=== PATIENT | male | born 1975 | race Caucasian/White ===

== ENCOUNTER → 2018-02-14 14:20 | Outpatient (CLI) | payer OTHER, SELFPAY | PROVIDERS: Visit Provider Physician Assistant | DX: J02.0 Streptococcal pharyngitis (principal) | CPT/HCPCS: 87070 ==

== ENCOUNTER → 2018-05-14 16:04 | Outpatient (CLI) | payer OTHER, SELFPAY | PROVIDERS: Visit Provider Physician Assistant | DX: R68.89 Other general symptoms and signs (principal) | CPT/HCPCS: 87400 ==

== ENCOUNTER 2020-12-03 14:44 | Emergency (ER) | payer OTHER, SELFPAY ==
[2020-12-03 14:51] VITALS: BP 132/71; PULSE 86; RESP 20; TEMP 36.2; O2SAT 98; BMI 25.8
--- NOTE | 2020-12-03 16:00 | ED.DIZZY ---
HPI - Dizziness <GLADIS Booker - Last Filed: 12/03/20 21:04> General Chief Complaint: Dizziness Stated Complaint: dizziness Time Seen by Provider: 12/03/20 15:20 Source: patient Mode of arrival: Ambulatory Limitations: no limitations History of Present Illness HPI Narrative: 45-year-old male presents the ED with complaint of vertigo for 1 and half months, that is intermittent, and happens most often when turning his head quickly. He reports that this started in the middle the night when he turned his head. He endorses that he does have seasonal allergies and has not been taking his Flonase or Zyrtec recently. He reports that he has a little bit of ear crackles, like Rice Krispies, although he has not had any changes to his hearing. He denies any visual changes although he reports that he has difficulty reading things up close and it is a little easier to read things that are further way. He does not know when his last eye exam was. Reports that he has had no chest pain, no shortness of breath, no lightheadedness, and no vertigo unless he is turning his head. He denies any fever chills, no nausea vomiting, he reports that his stomach just does not feel very good when he has this vertigo. He reports that the room is spinning around him and that he is not spinning. He does not feel the symptoms current, although he felt it earlier and he states his made him. He reports that if he does stop moving and wait a little while that his symptoms do resolve. Related Data Previous Rx's Medication Instructions Recorded meclizine 25 mg tablet 25 mg PO BID-QID #20 tab MDD 100mg 12/03/20 Allergies Allergy/AdvReac Type Severity Reaction Status Date / Time No Known Drug Allergies Allergy Verified 12/03/20 14:55 Review of Systems <GLADIS Booker - Last Filed: 12/03/20 21:04> Review of Systems Narrative: General: denies fever, chills, endorses episodes with vertigo lasting up to a minute or so but then resolve Head/Neck: denies headache, neck pain Eyes: denies visual changes, eye pain Cardio: denies chest pain, palpitations Respiratory: denies shortness of breath, cough GI: denies abdominal pain, nausea, vomiting, or diarrhea : denies dysuria, hematuria MSK: denies joint pain, muscle weakness Skin: denies rash, itching Neuro: denies numbness, tingling Patient History <GLADIS Booker - Last Filed: 12/03/20 21:04> Social History Smoking Status: Current every day smoker Smoking Status: Current every day smoker alcohol intake frequency: 0-2 drinks per day Substance Use Type: does not use Exam <GLADIS Booker - Last Filed: 12/03/20 21:04> Narrative Exam Narrative: Independently reviewed vitals signs and nursing notes. General: Awake, alert, nontoxic, no cardiorespiratory distress Head/Neck: Atraumatic, neck full range of motion Eyes: EOMI, conjunctiva normal Ears: No difference in hearing from his right to his left. No swelling around his ear. Nose: nares patent, no rhinorrhea Mouth/Throat: moist mucus membranes, posterior pharynx normal, no oral lesions, no lymphadenopathy, although 1 very small cervical lymph node palpable near left ear. Cardio: Regular rate and rhythm, no peripheral edema Respiratory: respirations unlabored without wheezing, stridor, or rales. No retractions. GI: Abdomen soft, nontender MSK: Moves all extremities, neurovascularly intact Skin: Normal capillary refill, no rash Neuro: Normal speech and cognition, normal gait Initial Vital Signs Initial Vital Signs: Vital Signs Temperature 97.1 F L 12/03/20 14:51 Pulse Rate 86 12/03/20 14:51 Respiratory Rate 20 12/03/20 14:51 Blood Pressure 132/71 12/03/20 14:51 Pulse Oximetry 98 12/03/20 14:51 <Yuly Martinez DO - Last Filed: 12/08/20 07:18> Initial Vital Signs Initial Vital Signs: Vital Signs Temperature 97.1 F L 12/03/20 14:51 Pulse Rate 86 12/03/20 14:51 Respiratory Rate 20 12/03/20 14:51 Blood Pressure 132/71 12/03/20 14:51 Pulse Oximetry 98 12/03/20 14:51 Course <GLADIS Booker Last Filed: 12/03/20 21:04> Orders Ordered: Discontinued Medications Meclizine HCl (Meclizine Hcl 12.5 Mg Tablet) 25 mg PO NOW ONE Stop: 12/03/20 15:22 Last Admin: 12/03/20 16:02 Dose: 25 mg Documented by: MIGUEL Reevaluation(s) Reevaluation #1: After meclizine, pt reports he feels fine, does not have vertigo at this time. Vital Signs Vital signs: Vital Signs - 8 hr 12/03/20 14:51 12/03/20 16:08 Temperature 97.1 F L Pulse Rate 86 83 Respiratory Rate 20 14 Blood Pressure 132/71 126/72 Pulse Oximetry 98 97 <Yuly Martinez DO - Last Filed: 12/08/20 07:18> Orders Ordered: Discontinued Medications Meclizine HCl (Meclizine Hcl 12.5 Mg Tablet) 25 mg PO NOW ONE Stop: 12/03/20 15:22 Last Admin: 12/03/20 16:02 Dose: 25 mg Documented by: MIGUEL Vital Signs Vital signs: Vital Signs - 8 hr 12/03/20 14:51 12/03/20 16:08 Temperature 97.1 F L Pulse Rate 86 83 Respiratory Rate 20 14 Blood Pressure 132/71 126/72 Pulse Oximetry 98 97 MDM - Dizziness <GLADIS Booker - Last Filed: 12/03/20 21:04> [facility] Narrative Medical decision making narrative: 45-year-old male presents the ED for 1 and half months of vertigo symptoms after head movement. This is most likely BPPV based on his history description of symptoms. He describes that he gets congestion with seasonal allergies. I recommended that he take meclizine for symptoms, and to continue his Zyrtec, and use Flonase for a couple of weeks to see if this helps his symptoms. More importantly he was instructed to establish primary care with his PCP for follow-up about this. Initial ddx to include but not limited to Meniere's disease, other inner ear problem, or seasonal allergies. Patient is appropriate and amenable to discharge home. Vital signs are stable on repeat examination is unremarkable. Patient has been informed of results. Patient has been given strict return to ER precautions for any new or worsening symptoms. Patient understands to follow up closely with outpatient providers as instructed. Patient understands plan and agrees to discharge home. All questions and concerns answered at this time. <Yuly Martinez DO - Last Filed: 12/08/20 07:18> ECG Data Interpretation: Normal sinus rhythm rate 77 ND interval 116 QRS [address] changes no T-wave inversions no priors to compare Discharge Plan Departure Patient Disposition: Home Clinical Impression: Benign paroxysmal positional vertigo Qualifiers: Laterality: left Qualified Code(s): H81.12 - Benign paroxysmal vertigo, left ear Instructions: DI for Vertigo Activity Restrictions/Additional Instructions: You most likely have benign paroxysmal positional vertigo. Try Flonase twice a day for week, take your Zyrtec, and try meclizine when you have symptoms. Make an appointment with your PCP for follow-up if you are still having symptoms. Try to make gradual movements with your head, avoid any sudden movements of stomach your symptoms worse. *What to do: *Please continue to take your regular medications as directed. [x ] New medication prescriptions sent to your pharmacy: [[facility]] [ ] New medication written as a paper prescription [ ] No new medications given *Please follow up with your primary care provider in 2-3 days, call for an appointment. Let them know you were seen in the Emergency Department and that we ask that you be seen in follow up. We will electronically transmit a record of today's note if your PCP is in our system *If you do not have a primary care provider please contact the [facility] Resource line at [phone]. They will ask some questions about your medical history and help get you set up with a doctor in the community. *Return to Emergency Department if you should have any new, worsening or concerning symptoms, such as [fever greater than 101F, chills, worsening pain, persistent vomiting or other bothersome symptoms] Prescriptions: New meclizine 25 mg tablet 25 mg PO BID-QID MDD 100mg Qty: 20 RF: 0 Referrals: Neelima Moses ARNP [Primary Care Provider] -
[2020-12-03] MEDS: MECLIZINE HCL 12.5 MG TABLET 25 MG PO (16:02)
[2020-12-03 16:08] VITALS: BP 126/72; PULSE 83; RESP 14; O2SAT 97
== END 2020-12-03 16:10 | disposition home or self-care (01) ==
PROVIDERS: Emergency Provider Nurse Practitioner Critical Care Medicine; PCP Nurse Practitioner
DX: H81.12 Benign paroxysmal vertigo, left ear (principal)
CPT/HCPCS: 93005; 99283

== ENCOUNTER 2023-04-12 17:55 | Emergency (ER) | payer OTHER, SELFPAY ==
[2023-04-12 17:59] VITALS: PULSE 104; O2SAT 97
[2023-04-12 18:00] VITALS: BP 148/92; PULSE 95; O2SAT 98
[2023-04-12 18:03] VITALS: BP 148/92; PULSE 89; RESP 16; TEMP 37.1; O2SAT 98; BMI 25.8
--- NOTE | 2023-04-12 18:09 | ED.BACK ---
HPI - Back Pain/Injury <Geovanny Bingham PA-C - Last Filed: 04/12/23 18:36> General Chief Complaint: Extremity Problem,Nontraumatic Stated Complaint: Right side upper back pain Time Seen by Provider: 04/12/23 18:07 History of Present Illness HPI Narrative: This is a 39-year-old male presents emergency department complaining of right-sided thoracic back pain. This began 4 days ago when he was lifting a heavy box [place] [employer]. He states that the pain begins in mid back and radiates down his right upper extremity occasionally. He states that pain worsens with movement. He denies any numbness or tingling in his right upper extremity. States that pain begins around his right trapezius. He was tried massage therapy which mildly helps with the pain. Reports taking 6000 mg of Tylenol a day as well as 3200 mg of ibuprofen to help with the pain with moderate relief. He denies any chest pain, shortness of breath, fevers, or any other systemic symptoms. Related Data Previous Rx's Medication Instructions Recorded meclizine 25 mg tablet 25 mg PO BID-QID #20 tabs 12/03/20 cyclobenzaprine 10 mg tablet 10 mg PO TID #30 tabs 04/12/23 lidocaine 4 % topical patch 1 patch topical BID PRN pain #30 ea 04/12/23 methylprednisolone 4 mg tablets in See Rx Instructions PO .COMPLEX 04/12/23 a dose pack (Medrol (Jaswinder)) #21 ea Allergies Allergy/AdvReac Type Severity Reaction Status Date / Time No Known Drug Allergies Allergy Verified 04/12/23 18:10 Review of Systems <Geovanny Bingham PA-C - Last Filed: 04/12/23 18:36> Review of Systems Narrative: GENERAL: Denies chills, fatigue, malaise, fever, sweats. HEENT: Denies sinus pain, ear pain, sore throat, difficulty swallowing, dizziness. RESPIRATORY: Denies dyspnea, cough, wheezing, hemoptysis, sputum. CARDIOVASCULAR: Denies chest pain, palpitations, orthopnea, edema, GASTROINTESTINAL: Denies nausea, vomiting, abdominal pain, diarrhea, constipation, melena. : Denies dysuria, frequency, incontinence, hematuria, urinary retention. MUSCULOSKELETAL: denies weakness, joint pain, or bony pain SKIN: Denies rash, skin lesions, or other NEUROLOGIC: Denies weakness, headache, numbness, change in speech, confusion, seizures, incoordination. PSYCHIATRIC: No concerning psychosocial issues. 12 point review of systems is negative except for those stated above Patient History <SOWMYA Balderas Last Filed: 04/12/23 18:36> Social History Smoking Status: Current every day smoker Smoking Status: Current every day smoker alcohol intake frequency: 0-2 drinks per day Substance Use Type: does not use Exam <SOWMYA Balderas Last Filed: 04/12/23 18:36> Narrative Exam Narrative: GENERAL: Well-developed patient, in mild distress. HEAD: Atraumatic. Normocephalic. EYES: Pupils equal round and reactive. Extraocular motions intact. No scleral icterus. No injection or drainage. ENT: Nose without bleeding, purulent drainage. Throat without erythema, tonsillar hypertrophy or exudate. Airway patent. NECK: Trachea midline. Non tender EXTREMITIES: No edema or joint tenderness. NEURO: AOx3. SKIN: No rash or erythema of visible areas Back: Tenderness to palpation to the thoracic paraspinals on the right side at approximately T1. No significant tenderness to palpation to the right shoulder remainder of right upper extremity. No significant weakness noted to the right side. Maintains adequate range of motion of the shoulder. Neurovascularly intact. Initial Vital Signs Initial Vital Signs: Vital Signs Pulse Rate 104 H 04/12/23 17:59 Pulse Oximetry 97 04/12/23 17:59 <Reuben Gordon DO - Last Filed: 04/13/23 07:01> Initial Vital Signs Initial Vital Signs: Vital Signs Pulse Rate 104 H 04/12/23 17:59 Pulse Oximetry 97 04/12/23 17:59 Course <SOWMYA Balderas Last Filed: 04/12/23 18:36> Vital Signs Vital signs: Vital Signs - 8 hr 04/12/23 18:03 04/12/23 18:10 Temperature 98.7 F Pulse Rate 89 Pulse Rate [Right Radial] 88 Respiratory Rate 16 Blood Pressure 148/92 H Pulse Oximetry 98 Oxygen Delivery Method Room Air <Reuben Gordon DO - Last Filed: 04/13/23 07:01> Vital Signs Vital signs: Vital Signs - 8 hr 04/12/23 18:03 04/12/23 18:10 Temperature 98.7 F Pulse Rate 89 Pulse Rate [Right Radial] 88 Respiratory Rate 16 Blood Pressure 148/92 H Pulse Oximetry 98 Oxygen Delivery Method Room Air MDM - Back Pain/Injury <Geovanny Bingham PA-C - Last Filed: 04/12/23 18:36> MDM Narrative Medical decision making narrative: ED course: This is a 47-year-old male presents to the emergency department complaining of suspected muscular strain after working with a heavy objects. He does have some pain noted with palpation of the right thoracic paraspinal muscles and. Did recommend following up outpatient with his primary care provider for possible MRI if the pain continues. Patient has already been taking a very high dosing of ibuprofen and Tylenol and no Toradol given today. We will prescribe muscle relaxants as well as a Medrol Dosepak, lidocaine patches. Recommended rest, ice, massage. CC: Right shoulder pain Complicating co-morbidities: None Data collected from: Previous notes Medical records reviewed: Patient was last seen 3 years ago due to benign positional vertigo. No pertinent medical history. Differential considered, but not limited to: Right shoulder strain, spinal cord injury Exam documented above, pertinent findings include: Tenderness to palpation to the thoracic paraspinals. No significant weakness noted on exam. Lab Test results independently reviewed as above. Pertinent findings: None obtained Imaging studies independently reviewed: None obtained Scores Used: None MIPS Elements: None Consultations: None Treatments: None Re-evaluations: None Discussion: Discussed plan with the patient was comfortable with the plan Diagnosis: Muscular strain Disposition: see below, along with detailed discharge instructions that have been reviewed with patient as well as indications for ED re-evaluation and additional outpatient follow up Discharge Plan Departure Patient Disposition: Home Clinical Impression: Muscle strain Activity Restrictions/Additional Instructions: Thank you for coming to the [facility] Emergency Department today. As we discussed I suspect this is muscular in nature. There is a chance that your some inflammation which is compressing some of the nerves coming from your spine which is causing the pain radiating down her right upper extremity. I suspect with rest, muscle relaxants, anti-inflammatories, and time that should improve. I do recommend he follow up with the primary care provider for a possible outpatient MRI if your symptoms continue. Please take the ibuprofen and Tylenol as recommended on the bottle. Please return to the emergency department if you develop any chest pain, shortness of breath, significant new weakness, or any other concerning signs or symptoms. I hope you feel better soon. Please follow up with your primary care provider within a week if your symptoms continue. If you do not have a primary care provider please contact the [facility] Resource line at [phone]. They will ask some questions about your medical history and help you get set up with a provider in the community. Prescriptions: New cyclobenzaprine 10 mg tablet 10 mg PO TID Qty: 30 0RF lidocaine 4 % adhesive patch,medicated 1 patch topical BID PRN (Reason: pain) Qty: 30 0RF methylprednisolone [Medrol (Jaswinder)] 4 mg tablets,dose pack See Rx Instructions .ROUTE .COMPLEX Qty: 21 0RF Rx Instructions: orally per package directions No Action meclizine 25 mg tablet 25 mg PO BID-QID MDD 100mg Qty: 20 0RF Referrals: Neelima Moses ARNP [Primary Care Provider] - Stand Alone Forms: Patient Portal/API ED Sign-out <Reuben Godron, DO - Last Filed: 04/13/23 07:01> Cosign ED Attending Cosignature Attestation: Dr Gordon Co-Sign Statement: I was available for consultation during this patient's emergency department visit. This chart is signed by myself for administrative purposes only. I did not have direct contact with this patient during this visit. They were seen independently by the APC.
[2023-04-12 18:10] VITALS: PULSE 88
[2023-04-12 18:30] VITALS: BP 133/76; PULSE 86; O2SAT 96
== END 2023-04-12 18:57 | disposition home or self-care (01) ==
LOC: ED 18:38
PROVIDERS: Emergency Provider Physician Assistant Medical; PCP Nurse Practitioner
DX: S29.012A Strain of muscle and tendon of back wall of thorax, initial encounter (principal); X50.0XXA Overexertion from strenuous movement or load, initial encounter
CPT/HCPCS: 99281; 99283

== ENCOUNTER 2025-03-08 12:25 | Inpatient (IN) | payer OTHER, SELFPAY ==
[2025-03-08 13:24] VITALS: BP 138/79; PULSE 80; RESP 17; TEMP 36.7; O2SAT 99; BMI 24.7
[2025-03-08 14:18] LABS: Add Manual Diff / Slide Review NO; Hematocrit 41.0 % (41-53); Hemoglobin 13.9 g/dL (13.5-17.5); Lymphocytes Absolute Auto 2100 /uL (1100-4500); Mean Corpuscular HGB Conc 33.9 % (30-36); Mean Corpuscular Hemoglobin 31.8 PG (26-34); Mean Corpuscular Volume 94.1 fL (80-100); Platelet Count 227 X10^3/uL (150-400)
[2025-03-08 14:29] LABS: Alanine Aminotransferase 16 IU/L (<50); Albumin 4.5 g/dL (3.5-5.0); Albumin Globulin Ratio 1.5 (1.0-2.8); Alkaline Phosphatase 81 U/L (38-126); Blood Urea Nitrogen 14 mg/dL (9-20); Calcium 9.1 mg/dL (8.4-10.2); Carbon Dioxide 26 mmol/L (22-32); Chloride 108 mmol/L (98-107); Estimated Glomerular Filt Rate > 60 mL/min (>60); Globulin 3.1 g/dL (1.7-4.1); Glucose 102 mg/dL (70-99); HEMOLYSIS 24 (0-50); Potassium 5.0 mmol/L (3.4-5.1); Sodium 140 mmol/L (137-145); Total Protein 7.6 g/dL (6.3-8.2)
[2025-03-08 14:30] LABS: Lactate (Lactic Acid) 1.1 mmol/L (0.7-2.1)
[2025-03-08 14:47] LABS: Procalcitonin 0.067 ng/mL (<0.5)
--- NOTE | 2025-03-08 15:10 | ED.UPPEXIN ---
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 Patient was seen by would be urgent care yesterday whereby x-rays were done and cephalexin was discharged for which he has taken 1 dose. He noticed this morning swelling has gotten worse he is not able to bend his finger and he has noticed warmth tenderness and redness going up the wrist. Patient denies fever chills body aches numbness tingling down up the arm and neck. Other than what is stated 14 point review of system is negative. Related Data Previous Rx's ?Medication ?Instructions ?Recorded meclizine 25 mg tablet 25 mg PO BID-QID #20 tabs 12/03/20 cyclobenzaprine 10 mg tablet 10 mg PO TID #30 tabs 04/12/23 lidocaine 4 % topical patch 1 patch topical BID PRN pain #30 ea 04/12/23 methylprednisolone 4 mg tablets in See Rx Instructions PO .COMPLEX 04/12/23 a dose pack (Medrol (Jaswinder)) #21 ea Allergies Allergy/AdvReac Type Severity Reaction Status Date / Time No Known Drug Allergies Allergy Verified 03/08/25 13:25 Review of Systems Review of Systems ROS Unobtainable: All systems reviewed & are unremarkable except as noted in HPI and below Patient History tobacco type: cigarettes alcohol intake frequency: 0-2 drinks per day Exam Narrative Exam Narrative: GENERAL: [49] year old patient appears stated age. Well-developed patient, in mild distress. HEAD: Atraumatic. Normocephalic. EYES: Pupils equal round and reactive. Extraocular motions intact. No scleral icterus. No injection or drainage. EXTREMITIES: No edema or joint tenderness. BACK: Nontender without deformity or crepitance. No flank tenderness. NEURO: AOx3. SKIN: L index finger knuckle region swelling, redness, ttp with warm having difficulty with FROM of Index finger with dorsal swelling of the hand, motor sensory intact +2 radial pulse refill less than 2 seconds Initial Vital Signs Initial Vital Signs: Vital Signs Temperature 98.0 F 03/08/25 13:24 Pulse Rate 80 03/08/25 13:24 Respiratory Rate 17 03/08/25 13:24 Blood Pressure 138/79 03/08/25 13:24 Pulse Oximetry 99 03/08/25 13:24 Oxygen Delivery Method Room Air 03/08/25 13:24 Course Orders Ordered: ED Orders 03/08/25 13:55 CBC Auto Diff [Complete Blood Count AUTO DIFF] Stat CMP [Comprehensive Metabolic Panel] Stat Lactate (Lactic Acid) Stat Procalcitonin Stat 03/08/25 15:25 Blood Culture Stat 03/08/25 15:37 CT UE LT w con Stat Discontinued Medications Ceftriaxone Sodium 1,000 mg/ (Sodium Chloride) 100 mls @ 200 mls/hr IV NOW ONE Stop: 03/08/25 13:35 Lactated Ringer's (Lactated Ringers) 1,000 mls @ 1,000 mls/hr IV BOLUS ONE Stop: 03/08/25 16:14 Last Admin: 03/08/25 16:48 Dose: 1,000 mls/hr Documented By: DAVIDA Vancomycin HCl (Vancomycin) 1,000 mg in 200 mls @ 200 mls/hr IV NOW ONE Stop: 03/08/25 16:15 Piperacillin Sod/Tazobactam (Sod 4.5 gm/ Sodium Chloride) 100 mls @ 200 mls/hr IV NOW ONE Stop: 03/08/25 15:16 Last Admin: 03/08/25 16:48 Dose: 200 mls/hr Documented By: DAVIDA Ketorolac Tromethamine (Ketorolac 30 Mg/Ml Vial) 15 mg IV NOW ONE Stop: 03/08/25 15:16 Last Admin: 03/08/25 16:46 Dose: 15 mg Documented By: DAVIDA Vital Signs Vital signs: Vital Signs - 8 hr 03/08/25 13:24 Temperature 98.0 F Pulse Rate 80 Respiratory Rate 17 Blood Pressure 138/79 Pulse Oximetry 99 Oxygen Delivery Method Room Air MDM - Extremity Injury (Upper) Lab Data 03/08/25 13:55 03/08/25 13:55 Labs: Lab Results 03/08/25 Range/Units 13:55 WBC 14.2 H (4.5-11.0) X10^3/uL RBC 4.35 L (4.5-5.9) X10^6/uL Hgb 13.9 (13.5-17.5) g/dL Hct 41.0 (41-53) % MCV 94.1 (80-100) fL MCH 31.8 (26-34) PG MCHC 33.9 (30-36) % RDW 13.9 (11.6-14.8) % Plt Count 227 (150-400) X10^3/uL Neut % (Auto) 70.6 (50-75) % Lymph % (Auto) 14.8 L (25-40) % Shannon % (Auto) 10.0 (3-14) % Eos % (Auto) 3.7 (2-4) % Baso % (Auto) 0.9 (0-2) % Neut # (Auto) 33042 H (4394-0838) /uL Lymph # (Auto) 2100 (1958-7467) /uL Shannon # (Auto) 1400 H (0-900) /uL Eos # (Auto) 500 H (0-450) /uL Baso # (Auto) 100 (0-100) /uL Sodium 140 (137-145) mmol/L Potassium 5.0 (3.4-5.1) mmol/L Chloride 108 H (98-107) mmol/L Carbon Dioxide 26 (22-32) mmol/L BUN 14 (9-20) mg/dL Creatinine 0.79 (0.66-1.25) mg/dL Estimated GFR > 60 (>60) mL/min BUN/Creatinine Ratio 17.7 (6-22) Glucose 102 H (70-99) mg/dL Lactate 1.1 (0.7-2.1) mmol/L Calcium 9.1 (8.4-10.2) mg/dL Total Bilirubin 0.4 (0.2-1.3) mg/dL AST 25 (17-59) IU/L ALT 16 (<50) IU/L Alkaline Phosphatase 81 (38-126) U/L Total Protein 7.6 (6.3-8.2) g/dL Albumin 4.5 (3.5-5.0) g/dL Globulin 3.1 (1.7-4.1) g/dL Albumin/Globulin Ratio 1.5 (1.0-2.8) Procalcitonin 0.067 (<0.5) ng/mL Imaging Data Extremity x-ray #1: Radiologist's Impression: [address] [address] [address] Scan Report Signed Patient: Tahir Ashley MR#: [id number] : 1975 Acct:[id number] Age/Sex: 49 / M Date of Service: 03/08/25 Loc: ED Accession Number: [id number] Procedure: CT UE LT w con Ordering Provider: Suraj Mccormack D.O. PROCEDURE: CT UE LT W CON INDICATIONS: L hand infection x 1 week streaking up the arm TECHNIQUE: After the administration of intravenous contrast, 3 mm axial sections acquired of the left distal forearm through hand , with coronal and sagittal reformats. COMPARISON: None. FINDINGS: Bones: No fracture. No dislocation. Bone island in the base of the thumb metacarpal. Soft tissues: Superficial subcutaneous fat edema along the dorsal hand and wrist . More focal hypoattenuating dorsal soft tissue overlying the index finger metacarpophalangeal joint may represent a soft tissue wound (series 3, image 14) recommend correlation with physical exam findings Normal opacification of the radial and ulnar arteries. IMPRESSION: Enhancing subcutaneous fat edema along the distal forearm con mild dorsal hand, and wrist, concerning for cellulitis with more focal possible soft tissue wound along the dorsal index finger metacarpophalangeal joint. Recommend correlation with physical exam findings. MDM Narrative Medical decision making narrative: All lab work, vital signs, nurse triage note, medication list, previous ER visits, and all imaging studies reviewed. CT scan showed enhancing subcutaneous fat edema along the distal forearm and dorsum of the hand and wrist concerning for cellulitis with more focal possible soft tissue wound along the dorsal index finger MCP joint. Patient given fluids vancomycin and Zosyn here. White count of 14 lactic acid 1.1. Procal 0.067. Case d/w no acute intervention at this time IV antbx for cellulitis unless concern for septic joint. Differential diagnosis cellulitis abscess MRSA flexor tenosynovitis. Case discussed with Dr. Alexander who has graciously accepted the patient for inpatient admission Discharge Plan Departure Patient Disposition: Admitted as Observation Clinical Impression: Cellulitis of dorsum of hand Admit Date/Time: 03/08/25 17:34 Admit Provider: Roman Alexander V
--- NOTE | 2025-03-08 15:37 | DI.CT.S_ITS ---
PROCEDURE: CT UE LT W CON INDICATIONS: L hand infection x 1 week streaking up the arm TECHNIQUE: After the administration of intravenous contrast, 3 mm axial sections acquired of the left distal forearm through hand , with coronal and sagittal reformats. COMPARISON: None. FINDINGS: Bones: No fracture. No dislocation. Bone island in the base of the thumb metacarpal. Soft tissues: Superficial subcutaneous fat edema along the dorsal hand and wrist . More focal hypoattenuating dorsal soft tissue overlying the index finger metacarpophalangeal joint may represent a soft tissue wound (series 3, image 14) recommend correlation with physical exam findings Normal opacification of the radial and ulnar arteries. IMPRESSION: Enhancing subcutaneous fat edema along the distal forearm con mild dorsal hand, and wrist, concerning for cellulitis with more focal possible soft tissue wound along the dorsal index finger metacarpophalangeal joint. Recommend correlation with physical exam findings. Dictated by: Tripp Fan M.D. on 03/08/2025 at 16:03 Approved by: Tripp Fan M.D. on 03/08/2025 at 16:07
[2025-03-08] MEDS: KETOROLAC 30 MG/ML VIAL 15 MG IV (16:46)
[2025-03-08] MEDS: PIPERACILLIN/TAZO 4.5 GM in SODIUM CHLORIDE 0.9% 100 ML IV ×2 (16:48→20:18)
[2025-03-08] MEDS: LACTATED RINGERS 1,000 ML 1000 ML IV (16:48)
[2025-03-08 17:02] VITALS: BP 137/72; RESP 18
[2025-03-08 17:03] VITALS: PULSE 75; O2SAT 96
[2025-03-08 17:30] VITALS: BP 126/65; PULSE 79; RESP 17; O2SAT 97
[2025-03-08] MEDS: VANCOMYCIN 1,000 MG/200 ML PIGGYBACK 200 MG IV (17:59)
[2025-03-08 18:00] VITALS: BP 137/73; PULSE 73; O2SAT 98
--- NOTE | 2025-03-08 18:03 | PM.HP.IH.1 ---
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 He states he saw bone and cleaned out the area thoroughly, and has been monitoring it, going to a [facility] in [place] and started on oral antibiotics in the past 24 hours. However he has had increased pain and swelling with a burning sensation in his index finger. Meds Home Medications and Allergies Home Medications ?Medication ?Instructions ?Recorded ?Confirmed ?Type meclizine 25 mg tablet 25 mg PO BID-QID #20 tabs 12/03/20 Rx cyclobenzaprine 10 mg tablet 10 mg PO TID #30 tabs 04/12/23 Rx lidocaine 4 % topical patch 1 patch topical BID PRN pain #30 ea 04/12/23 Rx methylprednisolone 4 mg tablets in See Rx Instructions PO .COMPLEX 04/12/23 Rx a dose pack (Medrol (Jaswinder)) #21 ea Allergies Allergy/AdvReac Type Severity Reaction Status Date / Time No Known Drug Allergies Allergy Verified 03/08/25 13:25 Review of Systems Review of Systems ROS: Yes All systems reviewed with the patient and are negative except as otherwise documented Exam Vital Signs (past 8 hours): - 03/08/25 13:24 Temperature 98.0 F Pulse Rate 80 Respiratory Rate 17 Blood Pressure 138/79 Pulse Oximetry 99 Oxygen Delivery Method Room Air Oxygen Delivery Method Room Air Narrative Exam Narrative: GENERAL: This is a well-nourished, well-developed patient, in no apparent distress. EYES: Pupils equal round and reactive. Extraocular motions intact. No scleral icterus. No injection or drainage. ENT: Mucous membranes pink and moist. NECK: Trachea midline. No JVD, bruits or lymphadenopathy. Supple, nontender, no meningeal signs. CARDIOVASCULAR: Regular rate and rhythm without murmurs, gallops, or rubs. RESPIRATORY: Clear to auscultation. GASTROINTESTINAL: Abdomen soft, non-tender, nondistended. EXTREMITIES: No clubbing, cyanosis, or edema. NEUROLOGIC: Alert, oriented, speech fluent, full upper and lower motor strength, no focal deficits evident. Normal sensation in left index fingertip. DERMATOLOGIC: Left posterior hand with swelling and erythema, with a index finger MTP 1cm superficial ulceration. MUSCULOSKELETAL: Left wrist with decreased ROM, swelling and warm, with pain with extension and flexion. Objective Imaging Left upper extremity CT with contrast 03/08/2025:: Radiologist's impression: Enhancing subcutaneous fat edema along the distal forearm con mild dorsal hand, and wrist, concerning for cellulitis with more focal possible soft tissue wound along the dorsal index finger metacarpophalangeal joint. Recommend correlation with physical exam findings. Labs 03/08/25 13:55 03/08/25 13:55 Labs: Laboratory Results - last 24 hr 03/08/25 13:55 WBC 14.2 H RBC 4.35 L Hgb 13.9 Hct 41.0 MCV 94.1 MCH 31.8 MCHC 33.9 RDW 13.9 Plt Count 227 Neut % (Auto) 70.6 Lymph % (Auto) 14.8 L [place] % (Auto) 10.0 Eos % (Auto) 3.7 Baso % (Auto) 0.9 Neut # (Auto) 56849 H Lymph # (Auto) 2100 [place] # (Auto) 1400 H Eos # (Auto) 500 H Baso # (Auto) 100 Sodium 140 Potassium 5.0 Chloride 108 H Carbon Dioxide 26 BUN 14 Creatinine 0.79 Estimated GFR > 60 BUN/Creatinine Ratio 17.7 Glucose 102 H Lactate 1.1 Calcium 9.1 Total Bilirubin 0.4 AST 25 ALT 16 Alkaline Phosphatase 81 Total Protein 7.6 Albumin 4.5 Globulin 3.1 Albumin/Globulin Ratio 1.5 Procalcitonin 0.067 Assessment & Plan Assessment & Plan narrative: 1. Left hand cellulitis. Rule out tendon sheath involvement. If worsening tomorrow consult orthopedics. 2. Leukocytosis. Plan: -Admit to hospital -IV Zosyn and Vancomycin -Follow cultures DVT prophylaxis: SCDs Code status: Full code Quality MIPS - Admit I confirm the patient?s Advance Care Plan is present, Code status is documented, Surrogate decision maker is in patient?s record [If Yes, STOP here]: Yes MIPS - Meds 'Current medications' to include all prescriptions, eini-bvc-mdixsop products, herbals, cannabis/cannabidiol products, and vitamin/mineral/dietary (nutritional) supplements. I have utilized all available resources to obtain, update, or review the patient?s current medications. [If Yes, STOP here]: Yes [employer] Hoisting [employer] Document charge(s): No Charge Codes Initial inpatient/observation care: [id number]
[2025-03-08 18:19] VITALS: BP 140/87; PULSE 77; RESP 17; TEMP 36.5; O2SAT 99
[2025-03-08 18:23] VITALS: BMI 24.7
[2025-03-08] MEDS: NICOTINE 21 MG PATCH TOP (19:46)
[2025-03-09 00:25] VITALS: BP 116/66; PULSE 73; RESP 16; O2SAT 98
[2025-03-09] MEDS: VANCOMYCIN 1,000 MG/200 ML PIGGYBACK 200 MG IV ×2 (01:24→09:46)
[2025-03-09 04:00] VITALS: BP 108/61; PULSE 71; RESP 15; TEMP 36.6; O2SAT 98
[2025-03-09] MEDS: PIPERACILLIN/TAZO 4.5 GM in SODIUM CHLORIDE 0.9% 100 ML IV (05:45)
[2025-03-09 06:01] LABS: Add Manual Diff / Slide Review NO; Hematocrit 37.2 % (41-53); Hemoglobin 12.6 g/dL (13.5-17.5); Lymphocytes Absolute Auto 2600 /uL (1100-4500); Mean Corpuscular HGB Conc 33.8 % (30-36); Mean Corpuscular Hemoglobin 31.7 PG (26-34); Mean Corpuscular Volume 93.9 fL (80-100); Platelet Count 212 X10^3/uL (150-400)
[2025-03-09 06:18] LABS: Blood Urea Nitrogen 13 mg/dL (9-20); Calcium 8.4 mg/dL (8.4-10.2); Carbon Dioxide 23 mmol/L (22-32); Chloride 109 mmol/L (98-107); Estimated Glomerular Filt Rate > 60 mL/min (>60); Glucose 88 mg/dL (70-99); HEMOLYSIS < 15 (0-50); Potassium 4.1 mmol/L (3.4-5.1); Sodium 138 mmol/L (137-145)
--- NOTE | 2025-03-09 07:27 | PM.PN.1 ---
Subjective Subjective Interval history: A/P: 1. Left hand cellulitis. Rule out tendon sheath involvement. If worsening tomorrow consult orthopedics. 2. Leukocytosis. PLAN: -Admit to hospital -IV Zosyn and Vancomycin -Follow cultures DVT prophylaxis: SCDs Code status: Full code IMAGING: Left upper extremity CT with contrast 03/08/2025:: Radiologist's impression: Enhancing subcutaneous fat edema along the distal forearm con mild dorsal hand, and wrist, concerning for cellulitis with more focal possible soft tissue wound along the dorsal index finger metacarpophalangeal joint. Recommend correlation with physical exam findings. Summary ([place] H&P): 49 year old healthy male patient without medical issues injured his left hand about 2 weeks ago while using a tool and cutter grinder on a home project, striking his index finger knuckle, the tool and cutter grinder breaking through a Kevlar glove he was wearing at the time. He states he saw bone and cleaned out the area thoroughly, and has been monitoring it, going to a [facility] in [place] and started on oral antibiotics in the past 24 hours. However he has had increased pain and swelling with a burning sensation in his index finger. S: O: T 97.8?, BP 108/61, pulse 71, respiration 15, SpO2 98%. NAD, alert and oriented. Fluent speech. Lungs are clear, normal rate and effort. Heart is regular, no murmur gallop or rub. Abdomen is soft, non distended. Extremities are free of edema. Exam Vital Signs (past 8 hours): - 03/09/25 00:25 03/09/25 04:00 Temperature 97.8 F Pulse Rate 73 71 Respiratory Rate 16 15 Blood Pressure 116/66 108/61 Pulse Oximetry 98 98 Oxygen Flow Rate 0 0 Oxygen Delivery Method Room Air Oxygen Flow Rate 0 Objective Labs 03/09/25 05:19 03/09/25 05:19 Labs: Laboratory Results - last 24 hr 03/08/25 03/09/25 13:55 05:19 WBC 14.2 H 11.8 H RBC 4.35 L 3.96 L Hgb 13.9 12.6 L Hct 41.0 37.2 L MCV 94.1 93.9 MCH 31.8 31.7 MCHC 33.9 33.8 RDW 13.9 13.9 Plt Count 227 212 Neut % (Auto) 70.6 63.8 Lymph % (Auto) 14.8 L 22.2 L [place] % (Auto) 10.0 8.2 Eos % (Auto) 3.7 4.8 H Baso % (Auto) 0.9 1.0 Neut # (Auto) 50040 H 7500 H Lymph # (Auto) 2100 2600 [place] # (Auto) 1400 H 1000 H Eos # (Auto) 500 H 600 H Baso # (Auto) 100 100 Sodium 140 138 Potassium 5.0 4.1 Chloride 108 H 109 H Carbon Dioxide 26 23 BUN 14 13 Creatinine 0.79 0.88 Estimated GFR > 60 > 60 BUN/Creatinine Ratio 17.7 14.8 Glucose 102 H 88 Lactate 1.1 Calcium 9.1 8.4 Total Bilirubin 0.4 AST 25 ALT 16 Alkaline Phosphatase 81 Total Protein 7.6 Albumin 4.5 Globulin 3.1 Albumin/Globulin Ratio 1.5 Procalcitonin 0.067 [facility] Social History household members: spouse Smoking Status: Current every day smoker alcohol intake: never Assessment & Plan Time-Based Coding :: [TOTAL MINUTES] spent with patient and on the chart (including review of chart, obtaining history, exam, reviewing outside data, placing orders, documenting exam and treatment plan, and counseling patient) on [DATE].
[2025-03-09] MEDS: NICOTINE 21 MG PATCH TOP (09:48)
[2025-03-09 11:00] VITALS: BP 123/75; PULSE 73; RESP 16; TEMP 36.8; O2SAT 97
--- NOTE | 2025-03-09 11:40 | P.DS_ITS ---
History of Present Illness History of Present Illness Chief complaint: Lt hand infection Narrative: From H&P: 49 year old healthy male patient without medical issues injured his left hand about 2 weeks ago while using a grinder operator external tool on a home project, striking his index finger knuckle, the grinder operator external tool breaking through a Kevlar glove he was wearing at the time. He states he saw bone and cleaned out the area thoroughly, and has been monitoring it, going to a [facility] in [place] and started on oral antibiotics in the past 24 hours. However he has had increased pain and swelling with a burning sensation in his index finger. HOSPITAL COURSE: He was treated with 1 IM injection of Rocephin and 1 tablet of cephalexin before admission. He had a fairly red swollen hand upon admission and this improved dramatically with IV antibiotics and elevation. In the day of discharge with a he was nearly normal in appearance with mild swelling, mild redness. And no issues with active range of motion or pain with active range of motion of fingers and wrist. He was felt to be stable for discharge home in his eager to return home. MRSA screen was obtained and pending at the time of discharge. PLAN: We will add clindamycin to his cephalexin for 5 additional days to cover the possibility of MRSA. Continued elevation and close follow up with PCP. IMAGING: L Arm CT: Enhancing subcutaneous fat edema along the distal forearm con mild dorsal hand, and wrist, concerning for cellulitis with more focal possible soft tissue wound along the dorsal index finger metacarpophalangeal joint. Recommend correlation with physical exam findings. DISCHARGE EXAM: NAD, alert and oriented. Fluent speech. Lungs are clear, normal rate and effort. Heart is regular, no murmur gallop or rub. Abdomen is soft, non distended. Extremities are free of edema. Left hand is only very mildly swollen and red, not warm. Normal active and passive range of motion. No issues with extensor tendon pain. No obvious fluctuance. [N], the patient has documentation of a left ventricle ejection fracture less than or equal to 40%, or moderately or severely reduced left ventricle systolic function. [N], the patient has a history of heart transplant or left ventricular assist device (LVAD). [N], the patient was prescribed an ALESIA inhibitor at discharge or is already being taken. The patient was not prescribed an ALESIA-inhibitor because of the following exception: NA. [N], the patient was prescribed Metoprolol succinate, bisoprolol, or carvedilol at discharge. The patient was not prescribed Metoprolol succinate, bisoprolol, or carvedilol at discharge because of the following exception: NA Discharge Providers Provider Date of admission: 03/08/25 17:34 Discharge Date: 03/09/25 Primary care physician: GLADIS Rios Discharge provider: Anup Gonsalez MD Summary Status at Discharge Cognitive/behavioral status at discharge: oriented Functional status at discharge: independent ambulation Overall status at discharge: patient is back to baseline Time Spent with Patient Time spent: Greater than 30 minutes Exam Vital Signs (past 8 hours): - 03/09/25 04:00 03/09/25 11:00 Temperature 97.8 F 98.2 F Pulse Rate 71 73 Respiratory Rate 15 16 Blood Pressure 108/61 123/75 Pulse Oximetry 98 97 Oxygen Flow Rate 0 0 Oxygen Delivery Method Room Air Oxygen Flow Rate 0 Objective Labs 03/09/25 05:19 03/09/25 05:19 Labs: Laboratory Results - last 24 hr 03/08/25 03/09/25 13:55 05:19 WBC 14.2 H 11.8 H RBC 4.35 L 3.96 L Hgb 13.9 12.6 L Hct 41.0 37.2 L MCV 94.1 93.9 MCH 31.8 31.7 MCHC 33.9 33.8 RDW 13.9 13.9 Plt Count 227 212 Neut % (Auto) 70.6 63.8 Lymph % (Auto) 14.[address] [place] % (Auto) 10.0 8.2 Eos % (Auto) 3.7 4.8 H Baso % (Auto) 0.9 1.0 Neut # (Auto) 09775 H 7500 H Lymph # (Auto) [address] [place] # (Auto) 1400 H 1000 H Eos # (Auto) 500 H 600 H Baso # (Auto) 100 100 Sodium 140 138 Potassium 5.0 4.1 Chloride 108 H 109 H Carbon Dioxide 26 23 BUN 14 13 Creatinine 0.79 0.88 Estimated GFR > 60 > 60 BUN/Creatinine Ratio 17.7 14.8 Glucose 102 H 88 Lactate 1.1 Calcium 9.1 8.4 Total Bilirubin 0.4 AST 25 ALT 16 Alkaline Phosphatase 81 Total Protein 7.6 Albumin 4.5 Globulin 3.1 Albumin/Globulin Ratio 1.5 Procalcitonin 0.067 PFSH Social History household members: spouse Smoking Status: Current every day smoker alcohol intake: never Discharge Plan Discharge Plan Patient Disposition: Home Provider Discharge Comment: Stable for discharge on oral antibiotics with close follow up. Discharge orders & Medications Prescriptions: New cephalexin 500 mg capsule 500 mg PO QID Qty: 28 0RF clindamycin HCl 300 mg capsule 300 mg PO TID Qty: 21 0RF Follow up/Referrals: Neelima Moses ARNP [Primary Care Provider, Medical] Diet/Activity/Treatments Diet: Diet as Tolerated Skin/Wound/Dressing Care Report to your healthcare provider any signs of infection, such as:: night sweats, increased pain, unusual drainage and unusual redness Visit Report/Discharge Packet Instructions: DI for Cellulitis -- Adult, Clindamycin, Cephalexin Stand Alone Forms: [employer], Patient Portal/API, Influenza Vaccine Info, Notice of Privacy Practices, Inpatient vs Outpatient, Pneumococcal Vaccine Info, Pt. Rights & Responsibilities Discharge Data Primary Care Provider: Neelima Moses
--- NOTE | 2025-03-09 12:23 | PC.NURSE ---
Pt stable and cooperative this shift, states cellulitis on hand is much improved; discharged home with his at approx. 1215 to continue PO abx. Reviewed signs of infection and reasons to return to ER. 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 IV removed.
[2025-03-09 12:30] LABS: MRSA (Nasal) PCR NOT DETECTED (Not Detect)
--- NOTE | 2025-03-09 12:50 | CM.DANOTE ---
Initial DCP Assessment Visit Note Reviewed EMR and team rounds for pt's medical status and updates. DAIRY QUALITY ASSURANCE OFFICER was unable to meet with pt prior to his d/c home due to unit triage needs. Pt resides independently in his own home with his spouse in [place]. Spouse was able to transport home today after he was medically cleared for d/c. No CM d/c needs are identified at this time. Payor: [facility] PCP: Neelima Moses Pt is a 49 year-old M who preented tot ED after a cut on his finger worsened over the last 4-days had become more swollen, red, and warm/tender, with the redness now traveling up his wrist. CT imaging showed what appeared to be cellulitis. He was started on IV antibiotics and admitted to the floor for further tx and monitoring. Today, he was much improved, was transitioned to oral antibiotics and discharged home. Discharge Planning/Care Management CM Discharge Assessment Start: 03/08/25 18:23 Freq: Status: Discharge Protocol: Document 03/09/25 12:48 DPL (Rec: 03/09/25 12:50 DPL [id number]) Discharge Planning Assessment Assigned Discharge QUINTEN Larose Sales Operations Analyst Insurance [facility] Advance Directives? No History Provided By Medical Record Has Patient been No admitted in last 30 days? Prior Living House Arrangements Household Members spouse Type of Drives own vehicle transporation used prior to admit Independent with ADL Yes 's Is patient alert and Yes oriented? Caregiver for No Another Comment N/A Comment No identified home d/c needs at this time. Barriers to No Discharge Discharge Plan Home Referrals Initiated None needed Review Status In Process Please Provide Date 03/09/25 Initial DC Assessment Was Performed
== END 2025-03-09 12:20 | disposition home or self-care (01) | DRG 603 ==
LOC: ED 15:09 → AC 17:35
PROVIDERS: Emergency Medicine; Hospitalist; Admitting Provider Internal Medicine; Emergency Provider Family Medicine; PCP Nurse Practitioner; Referring Provider Family Medicine; Visit Provider Internal Medicine
DX: L03.114 Cellulitis of left upper limb (principal); D72.829 Elevated white blood cell count, unspecified; F17.200 Nicotine dependence, unspecified, uncomplicated
CPT/HCPCS: 36415; 73201; 80048; 80053; 83605; 84145; 85025; 87040; 87797; 96365; 96375; 99283; J1885; J2543; J3375; J7050; J7120; Q9967